=== PATIENT | female | born 1930 | race Caucasian/White ===

== ENCOUNTER 2016-10-20 15:54 | Emergency (ER) | payer OTHER, MEDICARE ==
[2016-10-20 16:30] VITALS: RESP 16; O2SAT 96
--- NOTE | 2016-10-20 17:46 | UCPHY ---
H & P Time Seen by Provider: 10/20/16 16:25 Patient Type: Established HPI/ROS: This patient was getting out of her car when she felt that her knee twisted and slightly gave out and she then twisted her right hip. She caught herself on the door before falling to the ground but complains of right hip more than right knee pain since that time. The incident occurred today at 12:30 p.m.. She reports that she has chronic moderate knee pain at baseline that is slightly worse today after the incident. Her right hip pain is also moderate intensity. She took Aleve with partial relief and notes no other exacerbating factors except for worsening with walking. Patient walked into the clinic. ROS: She has chronic low back pain is unchanged. Chronic sciatica but this pain feels like it is more anterior and lateral on the hip. No new numbness or tingling. No other injuries today. 5 point ROS is otherwise negative. Past Medical/Surgical History: Diskectomy lumbar 40 years ago with sciatic injury. Chronic low back pain Right knee replacement Smoking Status: Never smoked Physical Exam: Physical Exam Vital signs are normal. General: No acute distress HEENT: Atraumatic. Eyes: Pupils equal and react to light. Extraocular motions are intact. Lungs: Clear to auscultation bilaterally. No respiratory distress. Cardiac: Regular rate and rhythm with no murmur gallop or rub Pulses are 2+ and symmetric in the affected extremity. Skin: No rash or pallor. Extremities: Atraumatic normal except for right lower extremity Right hip: Patient has lateral tenderness over the greater trochanter region that is moderate. Appreciate no ecchymosis to this region. There is no foreshortening of her lower extremity or external rotation. Am able to passively flex and extend her hip without much pain. She has mild pain with external rotation. Right knee: Mild circumferential swelling which she says is chronic. She has lateral tenderness in the knee. She has mild limitation in flexion which she says is baseline for her. Is no ecchymosis. No abrasion. No skin erythema or warmth to touch. Neuro: Alert and oriented x3 with no sensorimotor deficits. Initial differential diagnosis: Hip strain and knees strain, hip fracture or bony abnormality, knee fracture bony abnormality Constitutional: Initial Vital Signs Temperature (C) 36.5 C 10/20/16 16:26 Heart Rate 87 10/20/16 16:26 Respiratory Rate 16 10/20/16 16:26 Blood Pressure 225/122 H 10/20/16 16:26 O2 Sat (%) 96 10/20/16 16:26 O2 Delivery Mode Room Air Allergies/Adverse Reactions: codeine Allergy (Verified 10/20/16 16:26) morphine Allergy (Verified 10/20/16 16:26) Home Medications: Medication Instructions Recorded Benazepril-Hctz 10-12.5 mg Tab 01/19/15 Methocarbamol [Robaxin 750 mg (*)] 750 - 1,500 mg PO QID PRN #30 tab 10/20/16 MDM/Departure - MDM Diagnostics: Hip x-ray: No fracture-read by Dr. Argueta reviewed by myself Knee x-ray: Artificial knee joint without acute fracture read by Dr. Argueta reviewed by myself ED Course/Re-evaluation: I counseled patient regarding muscle strain to think is most consistent with her findings. Will provide a prescription for methocarbamol. After workup, no evidence of fracture or other significant acute injury. - Depart Disposition: Home, Routine, Self-Care Clinical Impression: Strain of hip Qualifiers: Encounter type: initial encounter Laterality: right Qualified Code(s): S76.011A - Strain of muscle, fascia and tendon of right hip, initial encounter Condition: Good Instructions: Muscle Strain (ED) Additional Instructions: Diagnosis: 1. Right knee strain 2. Right hip strain Plan: Methocarbamol muscle relaxant as needed for pain. Ice 20 minutes at a time to 3 times a day for the next few days Follow up with the orthopedic physician listed below for further evaluation if her symptoms are not improving over the next 5-7 days. Go to the emergency department for any significant worsening despite the treatment plan. Prescriptions: Methocarbamol [Robaxin 750 mg (*)] 750 - 1,500 mg PO QID PRN #30 tab PRN Reason: Muscle Spasms Referrals: Channing Begum MD [Primary Care Provider] - As per Instructions Tk Hastings MD [Medical Doctor] - As per Instructions - PQRS PQRS Measurement: 134: Depression screening and followup, PRIME MORGAN-PHQ2 (12 years and older) Over the last 2 weeks, how often have you been bothered by any of the following problems? 1. Feeling down, depressed, or hopeless? 2. Little interest or pleasure in doing things? Patient answered no to both 1 and 2 130: Documentation of medications. Reviewed all patient medications, doses, route and frequency. 226: Do you smoke? [No.] 47: 65 and older: Advanced care planning. She has an advance directive 51: 18 years old and older with diagnosis of COPD, spirometry performance. NA 52: 18 years old and older with COPD and symptoms of COPD or FEV1<60% predicted prescribed a B Agonist. SOILA
[2016-10-20 17:57] VITALS: BP 167/109; PULSE 79; TEMP 97.9
== END 2016-10-20 17:57 | disposition home or self-care (01) ==
LOC: CED 15:54
DX: S86.811A Strain of other muscle(s) and tendon(s) at lower leg level, right leg, initial encounter (principal); S76.011A Strain of muscle, fascia and tendon of right hip, initial encounter; Z96.651 Presence of right artificial knee joint
CPT/HCPCS: 73502; 73562; G0463; 99214-PO

== ENCOUNTER 2017-04-13 17:24 | Emergency (ER) | payer OTHER, MEDICARE ==
[2017-04-13 17:44] VITALS: RESP 16; TEMP 98.4
--- NOTE | 2017-04-13 19:00 | EDPHY ---
H & P Time Seen by Provider: 04/13/17 18:05 HPI/ROS: CHIEF COMPLAINT: Right foot pain HISTORY OF PRESENT ILLNESS: This is an 86-year-old female with a history of significant arthritis who reports that jammed her right foot 2 days ago while helping a friend move. She struck her 2nd and 3rd toes against a box. She describes pain in the midfoot, discomfort radiating up her tib-fib and some swelling and discomfort in her knee. She did have knee replacement in 1989 and has always had edema in the right knee. She did not fall. No head injury, no upper extremity injury, no direct fall onto the knee, tib-fib, or foot. She has been taking ibuprofen for the discomfort. REVIEW OF SYSTEMS: A ten point review of systems was performed and is negative with the exception of the items mentioned in the HPI PAST MEDICAL HISTORY: Hypertension, arthritis, status post right knee replacement SOCIAL HISTORY: nonsmoker GENERAL APPEARANCE: Pleasant, conversant. Noted to have blood pressure 212/ 79. Patient denies any head pain, neck pain, chest pain, or shortness of breath. HEENT: Benign. Lungs: Clear. Heart: Regular. FOCUSED EXAM OF right lower extremity: Moderate swelling to the right knee, patient reports the majority of this is chronic. Limited range of motion which she also reports is chronic. No tenderness to palpation. Right tib-fib: No deformities, ecchymosis, or abrasions, or lacerations. Mild discomfort to palpation along the tib-fib. Right foot: Tenderness at the mid shaft 2nd and 3rd metatarsal. No deformity noted. Significant arthritic changes to the foot Dorsalis pedis and posterior tibial pulses are intact. Neurovascular exam: Good capillary refill, normal neurologic exam. Smoking Status: Never smoked Constitutional: Initial Vital Signs Temperature (C) 36.9 C 04/13/17 17:35 Heart Rate 91 04/13/17 17:35 Respiratory Rate 16 04/13/17 17:35 Blood Pressure 212/79 H 04/13/17 17:35 O2 Sat (%) 97 04/13/17 17:35 O2 Delivery Mode Room Air Allergies/Adverse Reactions: codeine Allergy (Verified 04/13/17 17:34) morphine Allergy (Verified 04/13/17 17:34) Home Medications: Medication Instructions Recorded Benazepril-Hctz 10-12.5 mg Tab 01/19/15 Medical Decision Making - Diagnostics Imaging Results: Imaging Impressions Foot X-Ray 04/13/17 18:30 Impression: No evidence for acute fracture. Severe degenerative change midfoot. Evidence of prior plantar fasciitis, calcific deposition, and enthesophyte. Diffuse demineralization. Knee X-Ray 04/13/17 18:30 Impression: Stable postsurgical changes of right total knee arthroplasty. Suprapatellar joint effusion. No evidence for acute fracture. Tibia/Fibula X-Ray 04/13/17 18:30 Impression: No evidence for acute osseous abnormality right tibia and fibula. Imaging: I viewed and interpreted images myself ED Course/Re-evaluation: X-rays of the right foot, right tib-fib, right knee were obtained. There are no acute findings. Patient was given information regarding rest, ice, elevation, small doses of nonsteroidal for anti-inflammatory, and also had a lidocaine patch placed over her foot. She was advised that lidocaine gel is available [id number] may be useful for the areas of most tenderness. She will follow up with Dr. Begum she is not improving as expected. Procedure: Trimming of toenails Patient requested trim her toenails on her right foot. We do not have nail clippers available, toenails are quite hypertrophied and lichenified. They were trimmed with bone rongeurs. Differential Diagnosis: Differential diagnosis for the patient's injury was considered including but not limited to contusion, abrasion, laceration, fracture, open fracture, or dislocation. - Data Points Medications Given: Discontinued Medications Lidocaine (Lidoderm 5%) 1 ea TD EDNOW ONE Stop: 04/13/17 19:02 Last Admin: 04/13/17 19:39 Dose: 1 ea Departure - Departure Disposition: Home, Routine, Self-Care Clinical Impression: Toenail care Foot contusion Qualifiers: Encounter type: initial encounter Laterality: right Qualified Code(s): S90.31XA - Contusion of right foot, initial encounter Right knee sprain Qualifiers: Encounter type: initial encounter Involved ligament of knee: unspecified ligament Qualified Code(s): S83.91XA - Sprain of unspecified site of right knee , initial encounter Condition: Good Instructions: Knee Sprain (ED), Foot Contusion (ED) Additional Instructions: Mainstay of therapy is rest, ice, and nonsteroidal anti-inflammatories for pain and to decrease swelling. Apply ice for 20-30 minutes every 2-3 hours for the next 48 hours. I recommend Ibuprofen (Motrin, Advil) for pain and anti-inflammatory effects. Your dose is: Ibuprofen 400 mg every 6-8 hours with food. You may also take Tylenol 650 mg every 4 hours if needed for additional pain relief. You may obtain over the counter lidocaine gel which may help with the tender areas. Followup with your primary care physician as directed. Referrals: Channing Begum MD [Primary Care Provider] - 3-4 days, if not improved
[2017-04-13] MEDS ORDERED: LIDOCAINE 5% 1 EA PATCH TD ONE (19:01)
[2017-04-13 19:43] VITALS: BP 188/90; PULSE 72; O2SAT 95
[2017-04-13] MEDS ORDERED: PATCH REMOVAL 1 EA PATCH TD SCH (21:00)
== END 2017-04-13 19:42 | disposition home or self-care (01) ==
LOC: CED 17:24
DX: S90.31XA Contusion of right foot, initial encounter (principal); S83.91XA Sprain of unspecified site of right knee, initial encounter; I10 Essential (primary) hypertension; W23.1XXA Caught, crushed, jammed, or pinched between stationary objects, initial encounter
CPT/HCPCS: 73564-PO; 73590-PO; 73630-PO

== ENCOUNTER 2017-09-07 13:16 | Emergency (ER) | payer OTHER, MEDICARE ==
[2017-09-07 13:32] VITALS: RESP 18; O2SAT 96
--- NOTE | 2017-09-07 14:09 | EDPHY ---
H & P Stated Complaint: Right hand swelling after pushing up on hand very hard Time Seen by Provider: 09/07/17 13:29 HPI/ROS: Chief Complaint: Hand pain HPI: 86-year-old woman was pushing her up out of a seated position on Wednesday, 2 days ago, when she felt a pop in her right hand. She is having increasing pain and swelling since that time. She states she uses her hands daily to help her lift and move around. Denies any redness. No fevers or chills. No numbness or weakness. ROS: 10 point Review of Systems is negative except as noted in the HPI. Family History: non-contributory Physical Exam: General: Awake, alert, no acute distress Right hand. She has got tenderness over her distal ulna and proximal carpals. She has moderate swelling with tenderness. There is no erythema. Swelling is confined only to her hand. Decreased flexion extension secondary to pain. Sensations intact in the radial, median, and ulnar nerve distribution. Capillary refills less than 2 sec. Skin: No rash - Personal History Current Tetanus Diphtheria and Acellular Pertussis (TDAP): Yes Tetanus Vaccine Date: 2015 - Medical/Surgical History Hx Asthma: No Hx Chronic Respiratory Disease: No Hx Diabetes: No Hx Cardiac Disease: No Hx Renal Disease: No Hx Cirrhosis: No Hx Alcoholism: No Hx HIV/AIDS: No Hx Splenectomy or Spleen Trauma: No Other PMH: ortho. abd and back surg. right knee replacement. \. Shingles. HTN - Social History Smoking Status: Never smoked Constitutional: Initial Vital Signs Temperature (C) 36.7 C 09/07/17 13:28 Heart Rate 98 09/07/17 13:28 Respiratory Rate 18 09/07/17 13:28 Blood Pressure 198/98 H 09/07/17 13:28 O2 Sat (%) 96 09/07/17 13:28 O2 Delivery Mode Room Air Allergies/Adverse Reactions: codeine Allergy (Verified 09/07/17 13:28) morphine Allergy (Verified 09/07/17 13:28) Home Medications: Medication Instructions Recorded Benazepril-Hctz 10-12.5 mg Tab 01/19/15 Hydrocodone/Acetaminophen 1 - 2 each PO Q4-6PRN PRN #10 09/07/17 [Hydrocodon-Acetaminophen 5-325] tablet Medical Decision Making - Diagnostics Imaging Results: Imaging Impressions Hand X-Ray 09/07/17 13:35 Impression: 1. No acute fracture or bone lesion. 2. CPPD arthropathy and chondrocalcinosis. Imaging: I viewed and interpreted images myself ED Course/Re-evaluation: No fractures noted. No erythema or warmth suggestive of infection. Symptoms likely consistent with a sprain and exacerbation of her osteoarthritis. She has been taking too much ibuprofen. Will send her home with prescription for some Vicodin. Follow up with Orthopedics in a few days. Departure - Departure Disposition: Home, Routine, Self-Care Clinical Impression: Wrist sprain Condition: Good Instructions: R.I.C.E. Treatment (ED), Wrist Sprain (ED), Arthritis (ED) Additional Instructions: You may wear the Velcro splint as needed for comfort. Take no more than 3 ibuprofen 3 times a day for 3 days only. You may take Vicodin as needed for breakthrough pain. Follow up with Orthopedics in 2-3 days for further evaluation. Referrals: Channing Begum MD [Primary Care Provider] - As per Instructions Tk Hastings MD [Medical Doctor] - As per Instructions Prescriptions: Hydrocodone/Acetaminophen [Hydrocodon-Acetaminophen 5-325] 1 - 2 each PO Q4- 6PRN PRN #10 tablet PRN Reason: Pain, Severe
[2017-09-07 15:00] VITALS: BP 178/94; PULSE 90; TEMP 97.2
== END 2017-09-07 14:50 | disposition home or self-care (01) ==
LOC: CED 13:16
DX: S63.91XA Sprain of unspecified part of right wrist and hand, initial encounter (principal); I10 Essential (primary) hypertension; X58.XXXA Exposure to other specified factors, initial encounter
CPT/HCPCS: 73130-PO